=== PATIENT | male | born 1970 | race Caucasian/White ===

== ENCOUNTER 2022-10-28 15:40 | Outpatient (CLI) | payer OTHER, SELFPAY ==
[2022-10-28 15:57] LABS: Basophils Absolute Auto 0.1 K/mm3 (0.0-0.1); Basophils Percent Auto 0.5 % (0.2-1.2); Eosinophils Absolute Auto 0.2 K/mm3 (0-0.3); Eosinophils Percent Auto 2.6 % (0-4.4); Hematocrit 51.5 % (42.0-52.0); Hemoglobin 17.3 g/dL (14.0-18.0); Immature Granulocyte Absolute 0.03 K/mm3 (0.00-0.031); Immature Granulocyte Percent A 0.3 % (0-0.5); Lymphocytes Absolute Auto 2.22 K/mm3 (0.9-3.2); Lymphocytes Percent Auto 24.1 % (18.3-44.2); Mean Corpuscular HGB Conc 33.6 g/dl (32-36); Mean Corpuscular Hemoglobin 29.3 pg (26-34); Mean Corpuscular Volume 87.1 fl (80-100); Mean Platelet Volume 11.2 fl (7.4-10.4); Monocytes Absolute Auto 0.8 K/mm3 (0.1-0.6); Monocytes Percent Auto 8.8 % (2.6-8.5); Neutrophils Absolute Auto 5.9 K/mm3 (1.3-6.7); Neutrophils Percent Auto 63.7 % (45.5-73.1); Platelet Count Result 247 k/mm3 (150-375); Red Blood Count 5.91 M/mm3 (4.6-6.20); Red Cell Distribution Width 13.4 % (11.5-14.5); White Blood Count 9.2 K/mm3 (4.5-10.0)
[2022-10-28 16:33] LABS: Alanine Aminotransferase 55 U/L (6-50); Albumin Level 4.8 g/dL (3.5-5.1); Alkaline Phosphatase 82 U/L (38-126); Anion Gap 10 mmol/L (8-16); Aspartate Amino Transferase 51 U/L (17-59); Bilirubin,Total 0.7 mg/dL (0.2-1.3); Blood Urea Nitrogen 22 mg/dL (9-20); Carbon Dioxide 26 mmol/L (22-30); Chloride 102 mmol/L (98-107); Estimated Glomerular Filt Rate 40; Glucose 96 mg/dL (65-110); Potassium 4.4 mmol/L (3.4-5.0); Sodium 138 mmol/L (137-145)
[2022-10-31 11:20] LABS: Erythropoietin (EPO) 9.1 mIU/mL (2.6-18.5)
[2022-11-04 08:31] LABS: Testosterone Free 117.1 pg/mL (35.0-155.0); Testosterone Total 367 ng/dL (250-1100)
== END 2022-10-28 15:41 | disposition home or self-care (01) ==
LOC: ANHLAB 15:46
PROVIDERS: PCP Internal Medicine; Visit Provider Internal Medicine Hematology & Oncology
DX: D75.1 Secondary polycythemia (principal); E34.9 Endocrine disorder, unspecified
CPT/HCPCS: 36415; 80053; 82668; 84402; 84403; 85025

== ENCOUNTER 2023-01-19 03:31 | Day surgery (SDC) | payer OTHER, SELFPAY ==
[2023-01-07 11:50] VITALS: BMI 33.7
--- NOTE | 2023-01-16 14:36 | PM.HPGS ---
History of Present Illness History of Present Illness Consent: Risks, benefits, and alternatives have been discussed and questions answered. Patient agrees to proceed with procedure. Chief complaint: neoplasm screening Narrative: Hilario Anthony is a 52 year old male Referred for colon cancer screening. Review of Systems Review of Systems: All systems reviewed & are unremarkable except as noted in HPI and below PMFSH Past Medical History Medical History Dyslipidemia Elevated creatine kinase Erythrocytosis Hypogonadism in male Surgical History Surgical History History of surgery on arm Family History Family History Mother Asthma Lung cancer Social History Social History Smoking packs per day: 0.5 Smoking cigarettes per day: 10.0 Years smoked: 20 Smoking pack-years: 10.00 Smoking status: Former smoker Alcohol intake: current Drinks per week: 2 Substance use: current Substance use type: marijuana Last use: today - relax Lack of Transportation: No Lack of Food: Never True Current Housing: I Have Housing Concerned About Future Housing: No Difficulty Paying Gas/Electric Bills: No Difficulty Paying for Meds: No Currently Unemployed: No Difficulty w/ Childcare or Family Care: No Living arrangements: with family Occupation/Education: occupation Gender identity (if verbalized by the patient): Male Meds Home Medications and Allergies Home Medications Medication Instructions Recorded Confirmed Type Complete mutivitamin 1 tab-cap BYMOUTH 2XD 07/28/22 01/19/23 History cholecalciferol (vitamin D3) 25 25 mcg PO DAILY 07/28/22 01/19/23 History mcg (1,000 unit) capsule glutamine 500 mg capsule 500 mg PO BID 07/28/22 01/19/23 History (L-Glutamine) aspirin 81 mg tablet,delayed 81 mg PO DAILY 10/30/22 01/19/23 History release (Adult Aspirin Regimen) testosterone cypionate 200 mg/mL 200 mg IM .q 2 weeks #10 mL 11/24/22 01/19/23 Rx intramuscular oil Allergies Allergy/AdvReac Type Severity Reaction Status Date / Time No Known Allergies Allergy Unknown Verified 01/19/23 09:46 Exam Const: General: alert Orientation/consciousness: patient oriented x3 Resp: Auscultation: clear to auscultation bilaterally Cardio: Rhythm: regular rhythm GI: GI Palp: Yes Soft to palpation and No Tenderness to palpation present (GI) Neuro: General: patient oriented x3 Assessment and Plan Assessment and plan (1) Screening for colon cancer: Code(s): Z12.11 - Encounter for screening for malignant neoplasm of colon Status: Acute Assessment and Plan: Colonoscopy with possible biopsy or polypectomy or cautery or injection of substances.
[2023-01-19 09:47] VITALS: BP 145/78; PULSE 62; RESP 16; TEMP 36.1; O2SAT 99; BMI 33.7
[2023-01-19] MEDS: LACTATED RINGERS 1,000 ML 150 ML IV CONT (09:58)
--- NOTE | 2023-01-19 10:17 | WPDANESEPPF ---
Anes - Initial Pre Proc Eval Procedure: Operation Date: 01/19/23 11:00 Proposed Procedures p Screening Colonoscopy - Erick Gerard MD Date/Time: 01/19/23 10:17 Surgeon: Erick Gerard MD Pre Op Diagnosis: neoplasm screening Patient Data Age: 52 Gender: M Height: 1.83 m Weight: 113 kg Last Vital Signs Temp 96.9 F L 01/19/23 09:47 Pulse 62 01/19/23 09:47 Resp 16 01/19/23 09:47 BP 145/78 H 01/19/23 09:47 Pulse Ox 99 01/19/23 09:47 O2 Del Method Room Air 01/19/23 09:47 Allergies Allergy/AdvReac Type Severity Reaction Status Date / Time No Known Allergies Allergy Unknown Verified 01/19/23 09:46 Home Medications Medication Instructions Recorded Confirmed Type Complete mutivitamin 1 tab-cap BYMOUTH 2XD 07/28/22 01/19/23 History cholecalciferol (vitamin D3) 25 25 mcg PO DAILY 07/28/22 01/19/23 History mcg (1,000 unit) capsule glutamine 500 mg capsule 500 mg PO BID 07/28/22 01/19/23 History (L-Glutamine) aspirin 81 mg tablet,delayed 81 mg PO DAILY 10/30/22 01/19/23 History release (Adult Aspirin Regimen) testosterone cypionate 200 mg/mL 200 mg IM .q 2 weeks #10 mL 11/24/22 01/19/23 Rx intramuscular oil Patient hx anesthesia problems: none Family hx anesthesia problems: none Results Review: All pre-operative results and documents have been reviewed as part of the pre-operative evaluation. COUNTS INCLUDE 234 BEDS AT THE [facility] Past Medical History Medical History Dyslipidemia Elevated creatine kinase Erythrocytosis Hypogonadism in male Surgical History Surgical History History of surgery on arm Family History Family History Mother Asthma Lung cancer Social History Social History Smoking packs per day: 0.5 Smoking cigarettes per day: 10.0 Years smoked: 20 Smoking pack-years: 10.00 Smoking status: Former smoker Alcohol intake: current Drinks per week: 2 Substance use: current Substance use type: marijuana Last use: today - relax Lack of Transportation: No Lack of Food: Never True Current Housing: I Have Housing Concerned About Future Housing: No Difficulty Paying Gas/Electric Bills: No Difficulty Paying for Meds: No Currently Unemployed: No Difficulty w/ Childcare or Family Care: No Living arrangements: with family Occupation/Education: occupation Gender identity (if verbalized by the patient): Male Anes - Eval Final PreProcedure Day of Procedure 01/19/23 10:17 Patient weight: obese Heart: regular rate and rhythm Lungs: clear to auscultation Airway: Mallampati scale class II Neurological: alert and oriented Last oral intake: >/= 8 hours ASA classification: II Emergent: no Anesthetic plan: proceed Anesthesia type and monitoring: general GIVS and standard monitoring Results Review: All pre-operative results and documents have been reviewed as part of the pre-operative evaluation. Informed Consent: The patient's anesthetic plan and its attendant risks and benefits were discussed with the patient/family/POA. Questions were solicited and answers provided to the satisfaction of the patient/family/POA.
[2023-01-19 11:15] VITALS: BP 100/65; PULSE 65; RESP 17; O2SAT 99
[2023-01-19 11:25] VITALS: BP 101/63; PULSE 57; RESP 14; O2SAT 98
[2023-01-19 11:35] VITALS: BP 110/60; PULSE 57; RESP 14; O2SAT 100
== END 2023-01-19 11:43 | disposition home or self-care (01) ==
PROVIDERS: PCP Nurse Practitioner Family; Visit Provider Internal Medicine Gastroenterology
PROC: 0DJD8ZZ Inspection of Lower Intestinal Tract, Via Natural or Artificial Opening Endoscopic (ICD-10-PCS; CPT 45378; principal; 2023-01-19 11:00)
DX: Z12.11 Encounter for screening for malignant neoplasm of colon (principal); K62.1 Rectal polyp; D12.5 Benign neoplasm of sigmoid colon; F17.210 Nicotine dependence, cigarettes, uncomplicated; F12.90 Cannabis use, unspecified, uncomplicated; E78.5 Hyperlipidemia, unspecified; Z79.82 Long term (current) use of aspirin; E66.9 Obesity, unspecified; Z68.33 Body mass index [BMI] 33.0-33.9, adult
CPT/HCPCS: 45380; 88305; J2704; J7120

== ENCOUNTER 2023-05-15 03:06 | Day surgery (SDC) | payer OTHER, SELFPAY ==
[2023-05-11 12:40] VITALS: BMI 34.2
--- NOTE | 2023-05-11 12:41 | PC.NURSE ---
Addendum entered by Mario Neely RN 05/14/23 14:08: Patient says he was told to hold aspirin and took last dose 05-11-2023. Original Note: Report to the Outpatient Waiting Room, entrance under the green pavilion located off [facility], at time _1030_ on date _[id number]_. Planned Procedure Time: _1230_. Time changes happen often and if your time is changed the preop area will call you the afternoon before. - You and your visitor will be asked to self-screen and do not enter if you have any COVID symptoms. - A mask is optional within the hospital at this time. Patients may have clear liquids (water, carbonated beverages, clear teas, apple juice) until 3 hours prior to surgery with a maximum of 20 ounces. - No food from midnight until time of surgery Take the following medications with a SIP of water the morning of surgery: ____None DO NOT STOP ANY OF YOUR OTHER PRESCRIPTION MEDICATIONS PRIOR TO SURGERY ?EXCEPT THE FOLLOWING Medications to discontinue per physician All vitamins and supplements Date to take last byzz___[id number] Please no make-up, nail citizen of the [place], hairspray, perfume, deodorant, or body powder the day of surgery. No jewelry (including any body piercings) or valuables the day of surgery, leave them at home. Please take a shower or bath the night before, or the morning of, surgery with an antibacterial soap. Wear comfortable, loose fitting clothing. - Jewelry must be removed prior to entering the operating room. Rings and piercings that are not removed may be cut off. - The hospital will not accept responsibility for valuables. - Please leave all valuables, including medications, at home the day of surgery. If you are going home after surgery, a licensed trailer tank truck driver must drive you home. - NO public transportation without another adult if you receive anesthesia. - We recommend that an adult stay with you for 24 hours following discharge. - We also recommend that you do not drive, make important decision, drink alcoholic beverages, or take any drugs that were not prescribed by your health care provider for at least 24 hours after your discharge time. Follow any additional instructions given to you from your surgeon. If you or anyone in your household have experienced Covid symptoms in the past week, please notify your surgeon or the nurse liaison at the phone number below for possible testing. Telephone instructions given to _Patient__and asked if any additional questions and then verbalized understanding. Patient advised to call surgeon office or pre surgery nurse liaison [phone] if any additional questions.
[2023-05-15] VITALS (8 sets, daily range): BP systolic 120–150; BP diastolic 76–89; PULSE 58–76; RESP 12–20; TEMP 36.1–36.7; O2SAT 96–100
--- NOTE | ~2023-05-15 | XR_ITS ---
EXAMINATION: XR surgery orthopedic DATE: 05/15/2023 13:43 INDICATION: Right foot first metatarsophalangeal arthrodesis TECHNIQUE: 2 fluoroscopic images of the right forefoot were obtained during procedure performed by Dr Darline Franz. Radiologist was not present for the imaging or procedure. The amount of fluoroscopy time used during this procedure was 0.1 minutes. COMPARISON: None. FINDINGS: Images demonstrate a first metatarsophalangeal arthrodesis with dorsal plate and screw fixation. The joint is fused with approximately 15 degrees hallux valgus which is within normal limits. No fracture identified. There are some flattening of the articular surface at the head of the second metatarsal without underlying lucency or sclerosis which could be sequela of chronic osteonecrosis (Freiberg's i nfraction). Remaining joint spaces appear normal. IMPRESSION: 1. Fluoroscopy utilized during first metatarsophalangeal instrumented arthrodesis, negative for posto perative purposes. See procedure note for further detail. Reviewed, dictated and finalized at location A. TAL RECRUITER IMPRESSION: 1. Fluoroscopy utilized during first metatarsophalangeal instrumented arthrodes is, negative for postoperative purposes. See procedure note for further detail.
--- NOTE | 2023-05-15 07:13 | WPDHPUPDATE1 ---
History and Physical Update Update Date/Time: 05/15/23 07:13 History and Physical has been reviewed, including an updated exam of the patient. There are NO changes in the patient's condition. Risks, benefits, and alternatives have been discussed and questions answered. Patient agrees to proceed with procedure.
[2023-05-15] MEDS: LACTATED RINGERS 1,000 ML 30 ML IV CONT ×2 (11:05→13:56)
--- NOTE | 2023-05-15 11:15 | WPDANESEPPF ---
Anes - Initial Pre Proc Eval Procedure: Operation Date: 05/15/23 12:30 Proposed Procedures p Arthrodesis First Metatarsophalangeal Joint Right Foot - Rey Franz JR, MD Date/Time: 05/15/23 11:15 Surgeon: Rey Franz JR, MD Pre Op Diagnosis: arthritic bunion right foot Patient Data Age: 52 Gender: M Height: 1.83 m Weight: 122.8 kg Last Vital Signs Temp 36.7 C 05/15/23 10:50 Pulse 76 05/15/23 10:50 Resp 20 05/15/23 10:50 BP 150/81 H 05/15/23 10:50 Pulse Ox 97 05/15/23 10:50 O2 Del Method Room Air 05/15/23 10:50 Allergies Allergy/AdvReac Type Severity Reaction Status Date / Time No Known Allergies Allergy Unknown Verified 05/11/23 12:34 Home Medications Medication Instructions Recorded Confirmed Type Complete mutivitamin 1 tab-cap BYMOUTH 2XD 07/28/22 05/11/23 History cholecalciferol (vitamin D3) 25 25 mcg PO DAILY 07/28/22 05/11/23 History mcg (1,000 unit) capsule glutamine 500 mg capsule 500 mg PO BID 07/28/22 05/11/23 History (L-Glutamine) aspirin 81 mg tablet,delayed 81 mg PO DAILY 10/30/22 05/11/23 History release (Adult Aspirin Regimen) syringe with needle 3 mL 22 x 1 #20 ea 02/10/23 02/10/23 Rx 1/2 (BD Luer-Olive Syringe) testosterone cypionate 100 mg/mL 100 mg IM WEEKLY #10 mL 02/25/23 05/11/23 Rx intramuscular oil Patient hx anesthesia problems: none Family hx anesthesia problems: none Results Review: All pre-operative results and documents have been reviewed as part of the pre-operative evaluation. [facility] Past Medical History Medical History Dyslipidemia Elevated creatine kinase Erythrocytosis Hypogonadism in male Surgical History Surgical History History of surgery on arm Family History Family History Mother Asthma Lung cancer Social History Social History Smoking packs per day: 0.5 Smoking cigarettes per day: 10.0 Years smoked: 20 Smoking pack-years: 10.00 Smoking status: Former smoker Smoking end date: 05/11/11 Alcohol intake: current Drinks per week: 3 Substance use: current Substance use type: marijuana Last use: today - relax Lack of Transportation: No Lack of Food: Never True Current Housing: I Have Housing Concerned About Future Housing: No Difficulty Paying Gas/Electric Bills: No Difficulty Paying for Meds: No Currently Unemployed: No Difficulty w/ Childcare or Family Care: No Living arrangements: with family Occupation/Education: occupation Gender identity (if verbalized by the patient): Male Spiritual care concerns: No Anes - Eval Final PreProcedure Day of Procedure 05/15/23 11:16 Patient weight: obese Heart: regular rate and rhythm Lungs: clear to auscultation Airway: Mallampati scale class II Neurological: alert and oriented Last oral intake: >/= 8 hours ASA classification: III Emergent: no Anesthetic plan: proceed Anesthesia type and monitoring: general LMA and standard monitoring Results Review: All pre-operative results and documents have been reviewed as part of the pre-operative evaluation. Informed Consent: The patient's anesthetic plan and its attendant risks and benefits were discussed with the patient/family/POA. Questions were solicited and answers provided to the satisfaction of the patient/family/POA.
[2023-05-15] MEDS: ceFAZolin 3 GM/D5W 100 ML 100 ML IVPB (12:45)
--- NOTE | 2023-05-15 12:45 | WPDANESPNB ---
Anes - Peripheral Nerve Block Date/Time: 05/15/23 12:45 I have discussed with the patient/family/POA the placement of a peripheral nerve block for post-operative pain management, including associated risks, benefits, complications, and side effects. Alternative methods of post-operative analgesia were detailed. Questions were solicited and answers provided to the satisfaction of the patient/family/POA. Time-Out: A pre-procedural Time-Out was completed immediately before starting the procedure and confirmed: Patient Identification, Site, Procedure, Patient Position and the Availability of Requisite Equipment. Clinical Indications: Acute post-operative pain management requested by the operative surgeon. Nerve Block Insertion Note Anes-nerve block: posterior fossa sciatic right and other (Saphenous) Patient position: supine Skin prep: chlorhexidine Needle: 22 gauge, stimulating, insulated echogenic needle. Needle length: 80 mm Technique: nerve stimulation lost at (mA) (.3) Injectate: bupivacaine 0.5% with epi 5 mcg/ml (20/10ml) Observations: tolerated well Complications: none Procedure start time:: 1235 Procedure end time:: 1241
--- NOTE | 2023-05-15 14:26 | W.PM.PROC2 ---
Procedure Note - Detailed Date of Procedure 05/15/23 Pre-op Diagnosis Arthritic bunion right foot Post-op Diagnosis Same Procedure Performed Arthrodesis of the first metatarsal phalangeal joint right foot Surgeon Rey Franz JR, CHERISE Anesthesia General and Regional Indications Painful right forefoot with achiness to the great toe joint Findings Loss of articular cartilage to the first metatarsal phalangeal joint Description of Procedure PROCEDURE IN DETAIL: Under mild sedation, the patient was brought into the operating room, placed on the operating table in supine position. A pneumatic ankle tourniquet was placed about the patient's ipsilateral ankle. Following general anesthesia and popliteal fossa block. The foot was then scrubbed, prepped, and draped in the usual aseptic manner. An Esmarch bandage was then used to exsanguinate the patient's foot and the pneumatic ankle tourniquet was then inflated. Surgery began in the following manner: Attention was directed to the dorsal aspect of the 1st metatarsophalangeal joint where there was a large subcutaneous prominence noted along the dorsomedial aspect of the joint. The incision was made starting along the central shaft of the 1st metatarsal and extending just proximal to the interphalangeal joint of the hallux. The incision was continued deep down through the subcutaneous tissues using sharp and blunt dissection. All bleeders were cauterized as necessary. At this point, the dissection was continued down to the level of the periosteum and capsular structures overlying the 1st metatarsophalangeal joint. A full length periosteum and capsular incision was made just medial to the extensor hallucis longus tendon. The periosteum and capsular structures were freed from the base of the proximal phalanx as well as the distal 1st metatarsal. At this point, the 1st metatarsophalangeal joint was identified. There was almost complete loss of articular cartilage to the head of the 1st metatarsal as well as the base of the proximal phalanx. There was significant broadening and hypertrophy of the 1st metatarsophalangeal joint. Utilizing a sagittal bone saw, the hypertrophied 1st metatarsal was resected dorsally, medially, and laterally. A power bur was used to make sure that there were no rough edges and also to further debride the hypertrophic 1st metatarsal. Next, a rongeur was used to resect all hypertrophic base of the proximal phalanx. At this point, the reamer system for the [facility] CrossCHECK system was used to denude the degenerative cartilage from the head of the 1st metatarsal as well as the base of the proximal phalanx. The cartilage and subchondral bone were fully debrided utilizing the reamer system until healthy bleeding bone was noted. Next, a 2-0 drill bit was used to further fenestrate the head of the 1st metatarsal as well as the base of the proximal phalanx in order to allow fusion across the 1st metatarsophalangeal joint. Next, a 0.045 inch K-wire was driven from the medial aspect of the base of the proximal phalanx into the head of the 1st metatarsal in order to serve as temporary fixation. A large steel plate was used to make sure that the hallux was in a rectus position both in the sagittal plane as well as the frontal and transverse plane. Excellent position of the hallux was noted. Next, a CrossCHECK plate was placed atop the 1st metatarsophalangeal joint held in position with [place] wires. Utilizing standard principles and techniques, the 2 distal drill holes were drilled and two 3.5 mm fully-threaded locking screws were driven from dorsal to plantar holding the distal aspect of the plate intact. At this point, a 3.5mm lag screw was driven from dorsal distal to proximal plantar across the 1st metatarsophalangeal joint through the plate system with excellent compression noted after careful removal of the olive wire and temporary fixation from the 1st metatarsoph
== END 2023-05-15 15:51 | disposition home or self-care (01) ==
PROVIDERS: PCP Nurse Practitioner Family; Visit Provider Podiatrist Foot & Ankle Surgery
PROC: (CPT 28750; principal; 2023-05-15 12:30)
DX: M21.611 Bunion of right foot (principal); E78.5 Hyperlipidemia, unspecified; G89.18 Other acute postprocedural pain; F12.90 Cannabis use, unspecified, uncomplicated; E66.9 Obesity, unspecified; Z68.36 Body mass index [BMI] 36.0-36.9, adult; Z79.82 Long term (current) use of aspirin; Z87.891 Personal history of nicotine dependence; Z80.1 Family history of malignant neoplasm of trachea, bronchus and lung
CPT/HCPCS: 64445; 64450; 28750; 99199; C1713; J0690; J1100; J2250; J2405; J2704; J3010; J7120

== ENCOUNTER 2024-01-20 15:51 | Outpatient (CLI) | payer OTHER, SELFPAY ==
[2024-01-20 15:59] LABS: Basophils Absolute Auto 0.1 K/mm3 (0.0-0.1); Basophils Percent Auto 0.7 % (0.2-1.2); Eosinophils Absolute Auto 0.2 K/mm3 (0-0.3); Eosinophils Percent Auto 2.6 % (0-4.4); Hematocrit 45.1 % (42.0-52.0); Hemoglobin 15.5 g/dL (14.0-18.0); Immature Granulocyte Absolute 0.04 K/mm3 (0.00-0.031); Immature Granulocyte Percent A 0.5 % (0-0.5); Mean Corpuscular HGB Conc 34.4 g/dl (32-36); Mean Corpuscular Hemoglobin 29.2 pg (26-34); Mean Corpuscular Volume 85.1 fl (80-100); Mean Platelet Volume 10.7 fl (7.4-10.4); Monocytes Absolute Auto 0.7 K/mm3 (0.1-0.6); Monocytes Percent Auto 7.9 % (2.6-8.5); Neutrophils Absolute Auto 5.5 K/mm3 (1.3-6.7); Neutrophils Percent Auto 61.3 % (45.5-73.1); Platelet Count Result 216 k/mm3 (150-375); Red Cell Distribution Width 14.4 % (11.5-14.5); White Blood Count 8.9 K/mm3 (4.5-10.0)
== END 2024-01-20 15:52 | disposition home or self-care (01) ==
PROVIDERS: PCP Nurse Practitioner Family; Visit Provider Internal Medicine Hematology & Oncology
DX: D75.1 Secondary polycythemia (principal)
CPT/HCPCS: 36415; 85025

== ENCOUNTER 2024-11-04 13:07 | Outpatient (CLI) | payer OTHER, SELFPAY ==
[2024-11-04 13:21] LABS: Basophils Absolute Auto 0.1 K/mm3 (0.0-0.1); Basophils Percent Auto 0.6 % (0.2-1.2); Eosinophils Absolute Auto 0.3 K/mm3 (0-0.3); Eosinophils Percent Auto 2.6 % (0-4.4); Hematocrit 47.9 % (42.0-52.0); Hemoglobin 16.3 g/dL (14.0-18.0); Immature Granulocyte Absolute 0.03 K/mm3 (0.00-0.031); Immature Granulocyte Percent A 0.3 % (0-0.5); Lymphocytes Absolute Auto 2.27 K/mm3 (0.9-3.2); Lymphocytes Percent Auto 23.4 % (18.3-44.2); Mean Corpuscular Hemoglobin 28.4 pg (26-34); Mean Corpuscular Volume 83.4 fl (80-100); Monocytes Absolute Auto 0.7 K/mm3 (0.1-0.6); Monocytes Percent Auto 7.2 % (2.6-8.5); Neutrophils Absolute Auto 6.4 K/mm3 (1.3-6.7); Neutrophils Percent Auto 65.9 % (45.5-73.1); Platelet Count Result 259 k/mm3 (150-375); Red Blood Count 5.74 M/mm3 (4.6-6.20); Red Cell Distribution Width 13.6 % (11.5-14.5); White Blood Count 9.7 K/mm3 (4.5-10.0)
[2024-11-04 13:24] LABS: Blood Urea Nitrogen 22 mg/dL (8-26); Carbon Dioxide 26 mmol/L (22-30); Chloride 103 mmol/L (98-109); Estimated Glomerular Filt Rate 42; Glucose 97 mg/dL (70-105); Ionized Calcium (POC) 1.13 mmol/L (1.11-1.31); Potassium 4.1 mmol/L (3.5-4.9); Sodium 139 mmol/L (138-146)
--- OUTSIDE RECORDS SUMMARY | 2024-11-05 13:46 | XMS_ITS | Clinical Summary ---
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 Gender Identity Not on file Sexual Orientation Not on file Plan of Treatment Health Maintenance Due Date Last Done Comments Hepatitis C Virus (HCV) Screening 1968 TdaP Immunization 1968 Hepatitis B Immunization (1 of 3 - 19+ 3-dose series) 1987 Colonoscopy 2013 Colorectal Cancer Screening 2013 Cologuard 2018 Immunochemical Fecal Occult Blood 2018 Pneumococcal Immunization (5 0+ years) (1 of 1 - PCV) 2018 Zoster Immunization (1 of 2) 2018 PSA Discussion 2023 Influenza Immunization (#1) 2024 SARS-COV-2 Immunization ( - season) 2024 Respiratory Syncytial Virus (RSV) Immunization (Adult) (1 - 1-dose 75+ series) 2043 Meningococcal Immunization (ACWY) Aged Out No longer eligible based on patient's age to complete this topic Pneumococcal Immunization Combined Aged Out No longer eligible based on patient's age to complete this topic Rotavirus Immunization Aged Out No lo nger eligible based on patient's age to complete this topic
--- OUTSIDE RECORDS SUMMARY | 2024-11-05 13:46 | XMS_ITS | Clinical Summary ---
Author Organization [facility] Isaias sousa Nidia Address [address] [place] [address] Care Team Providers Care Machine Bunch Maker Name Role Phone Darnell Lainez MD Primary Care Provider [phone] Allergies No known active allergies Medications multivitamins- minerals-lutei n (CENTRUM SILVER) Tablet Take 1 Tablet by mouth daily. Active Testosterone Enanthate (DELATESTRYL) 200 mg/mL Oil Inject 50 mg by intramuscular injection one time only. 5ml every week Active aspirin (ECOTRIN EC) 81 mg Tablet, Delayed Release (E.C.) Take 81 mg by mouth daily. Active cholecalcifero l, vitamin D3, 5,000 unit Take 400 Units by mouth daily. Active Active Problems No known active problems Encounters Date Type Department Care Team Description 11/04/2024 1:15 PM CDT Office Visit [facility] Oncology and Hematology - [place] [address] [place] [address] Michael Martínez MD Polycythemia, secondary (Primary Dx) 09/13/2024 External Device Data STL ABSTRACTION Provider, Abstract 09/13/2024 External Device Data STL ABSTRACTION Provider, Abstract 08/16/2024 External Device Data STL ABSTRACTION Provider, Abstract from Last 3 Months Family History Medical History Relation Name Comments Lung Cancer Mother Relation Name Status Comments Brother 1 Alive Brother 2 Alive Daughter Alive Father Alive Mother Social History Tobacco Use Types Packs/Day Years Used Date Smoking Tobacco: Former Cigarettes Smokeless Tobacco: Never Tobacco Cessation:Counseling Given: Not Answered Alcohol Use Standard Drinks/Week Comments Yes 0 (1 standard drink = 0.6 oz pur e alcohol) occasional Sex and Gender Information Value Date Recorded Sex Assigned at Not on file 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 Gender Identity Not on file Sexual Orientation Not on file Last Filed Vital Signs Vital Sign Reading Time Taken Comments Blood Pressure 128/81 11/04/2024 1:20 PM CDT Pulse 88 11/04/2024 1:20 PM CDT Temperature 36.4 C (97.6 F) 11/04/2024 1:20 PM CDT Respiratory Rate 16 11/04/2024 1:20 PM CDT Oxygen Saturation 96% 11/04/2024 1:20 PM CDT Inhaled Oxygen Concentration - - Weight 119.4 kg (263 lb 3.2 oz) 11/04/2024 1:20 PM CDT Height 182.9 cm (6') 10/28/2022 2:53 PM CDT Body Mass Index 35.7 10/28/2022 2:53 PM CDT Plan of Treatment Upcoming Encounters Date Type Department Care Team (Late st Contact Info) Description 11/06/2025 3:45 PM CDT Office Visit [facility] Oncology and Hematology - [place] [address] [place] [address] [facility] [address] [place] [address] Michael Martínez MD [address] [facility] [address] [place] [address] Health Maintenance Due Date Last Done Comments Pre-Diabetes and Diabetes Screening 1968 DTAP/TDAP/TD VACCINES (1 - Tdap) 1987 HEPATITIS B VACCINES (1 of 3 - 19+ 3-dose series) 05/07 COLORECTAL SCREENING 2013 Colorectal Cancer Screening 2013 FIT-DNA Q 3 years 2013 FIT/FOBT Q 1 year 2013 Flex Sig/CT Colonography Q 5 years 2013 ZOSTER VACCINE (1 of 2) 2018 INFLUENZA VACCINE (#1) 2024 Insurance [employer] [facility] Care Teams Machine Bunch Maker Relationship Specialty Start Date End Date Darnell Lainez MD [address] [place] [id number] PCP - General Family Practice 07/22/23
--- OUTSIDE RECORDS SUMMARY | 2024-11-05 13:46 | XMS_ITS | Clinical Summary ---
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 Pulse - - Temperature - - Respiratory Rate - - Oxygen Saturation - - Inhaled Oxygen Concentration - - Weight 112.9 kg (249 lb) 06/08/2017 5:29 PM ENTRY MANAGER Height 185.4 cm (6' 1 ) 06/08/2017 5:29 PM ENTRY MANAGER Body Mass Index 32.85 06/08/2017 5:29 PM ENTRY MANAGER Plan of Treatment Health Maintenance Due Date Last Done Comments Colorectal Cancer Screening Colonoscopy (10 Years) 1968 Annual Physical 1971 Hepatitis C 1986 DTaP, Tdap and Td Vaccines ( 1 - Tdap) 1987 Hepatitis B Vaccines (1 of 3 - 19+ 3-dose series) 1987 Pneumococcal Vaccine: 50+ Ye ars (1 of 1 - PCV) 2018 Zoster Vaccines (1 of 2) 2018 COVID-19 Vaccine ( - 2023-2 5 season) 2024 Meningococcal B Vaccine Aged Out No l onger eligible based on patient's age to complete this topic Meningococcal Vaccine Aged Out No abril aileen eligible based on patient's age to complete this topic RSV Immunizations Under 20 Months Aged Out No longer eligible based on patient's age to complete this topic Insurance [employer] Care Teams Coffee Sampler Relationship Specialty Start Date End Date Phil Garcia MD [address] [place] [id number] PCP - General INTERNAL MEDICINE 05/30/20
== END 2024-11-04 13:08 | disposition home or self-care (01) ==
PROVIDERS: PCP Nurse Practitioner Family; Visit Provider Internal Medicine Hematology & Oncology
DX: D75.1 Secondary polycythemia (principal)
CPT/HCPCS: 36415; 80047; 85025

== ENCOUNTER 2025-03-07 16:05 | Outpatient (CLI) | payer OTHER, SELFPAY ==
--- NOTE | ~2025-03-07 | XR_ITS ---
EXAM/ PROCEDURE: XR finger 1st LT min 2V - 03/07/2025 16:18 CDT HISTORY: 54 years old Male with R22.32 - Localized swelling, mass and lump, left upper limb COMPARISON: None available TECHNIQUE: Three view(s) FINDINGS/ IMPRESSION: There are no fractures or dislocations.Joint space narrowing, subchondral sclerosis, subchondral cyst formation and osteophyte formation, compatible with moderate osteoarthritis. Reviewed, dictated and finalized at location N.
--- OUTSIDE RECORDS SUMMARY | 2025-03-07 16:09 | XMS_ITS | Clinical Summary ---
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 Pulse - - Temperature - - Respiratory Rate - - Oxygen Saturation - - Inhaled Oxygen Concentration - - Weight 112.9 kg (249 lb) 06/08/2017 5:29 PM OCCUPATIONAL HYGIENIST Height 185.4 cm (6' 1) 06/08/2017 5:29 PM OCCUPATIONAL HYGIENIST Body Mass Index 32.85 06/08/2017 5:29 PM OCCUPATIONAL HYGIENIST Plan of Treatment Health Maintenance Due Date [...] COVID-19 Vaccine ( - 2023-2 5 season) 2025 Meningococcal B Vaccine Aged Out No l onger eligible based on patient's age to complete this topic Meningococcal Vaccine Aged Out No abril aileen eligible based on patient's age to complete this topic RSV Immunizations Under 20 Months Aged Out No longer eligible based on patient's age to complete this topic Insurance [employer] Care Teams Tire Sorter Relationship Specialty Start Date End Date Phil Garcia MD [address] [place] [id number] PCP - General INTERNAL MEDICINE 05/30/20
--- OUTSIDE RECORDS SUMMARY | 2025-03-07 16:09 | XMS_ITS | Clinical Summary ---
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 Gender Identity Not on file Sexual Orientation Not on file Plan of Treatment Health Maintenance Due Date Last Done Comments Hepatitis C Virus (HCV) Screening 1968 TdaP Immunization 1968 Hepatitis B Immunization (1 of 3 - 19+ 3-dose series) 1987 Cologuard 2013 Colonoscopy 2013 Colorectal Cancer Screening 2013 Immunochemical Fecal Occult Blood 2013 Pneumococcal Immunization (5 0+ years) (1 of 1 - PCV) 2018 Zoster Immunization (1 of 2) 2018 SARS-COV-2 Immunization (1 - 2023- season) 2024 Influenza Immunization (#1) 2025 Respiratory Syncytial Virus (RSV) Immunization (Adult) (1 - 1-dose 75+ series) 2043 Human Papillomavirus (HPV) Immunization Aged Out No longer eligible b ased on patient's age to complete this topic Meningococcal Immunization (ACWY) Aged Out No longer eligible based on patient's age to complete this topic Rotavirus Immunization Aged Out No lo nger eligible based on patient's age to complete this topic
== END 2025-03-07 16:06 | disposition home or self-care (01) ==
PROVIDERS: PCP Nurse Practitioner Family; Visit Provider Plastic Surgery
DX: R22.32 Localized swelling, mass and lump, left upper limb (principal)
CPT/HCPCS: 73140

== ENCOUNTER → 2025-03-21 15:33 | Outpatient (REF) | payer OTHER, SELFPAY ==
--- NOTE | 2025-03-21 15:33 | S_PTH ---
PATIENT: Hilario Anthony LOC: AN[facility] #:[id number] AGE/SX: 55/M ROOM: RE03/21/[address]: Emily Stubbs MD : 1970 BED: DIS: SPEC #: [id number] RECD: 03/22/25 06:58 STATUS: CHUNJuan RETyler #: [id number] GREGOR: 03/21/25 15:[address]: Emily Stubbs DEPT: [facility] [place] Surgical RECD BY: Joyce Zheng ENTERED: 03/22/25 06:59 SP TYPE: Surgical OTHR DR: Lily Maddox APRN Tissues: A - Mass Procedures: Hematoxylin and Eosin Stain Gross and Microscopic Level 3
== END ==
LOC: ANHLAB 15:33
PROVIDERS: PCP Nurse Practitioner Family; Visit Provider Plastic Surgery
DX: R22.32 Localized swelling, mass and lump, left upper limb (principal)
CPT/HCPCS: 88304